=== PATIENT | male | born 1990 | race African-American/Black ===

== ENCOUNTER 2017-04-13 02:00 | Emergency (ER) | payer SELFPAY ==
[~2017-04-13] VITALS: Ht 188 cm; Wt 83.9 kg
[2017-04-13 02:15] VITALS: BP 124/66
== END 2017-04-13 03:34 | disposition home or self-care (01) ==
LOC: ER 02:21
DX: J40 Bronchitis, not specified as acute or chronic (principal)
CPT/HCPCS: 71010